=== PATIENT | female | born 1995 | race Two or more races ===

== ENCOUNTER 2017-06-11 07:06 | Outpatient (CLI) | payer OTHER | END 2017-06-11 07:09 | disposition home or self-care (01) | LOC: SONOGRAMA 07:06 | DX: E04.1 Nontoxic single thyroid nodule (principal) ==

== ENCOUNTER 2019-04-18 05:47 | Inpatient (IN) | payer OTHER ==
[~2019-04-18] VITALS: Ht 121.9 cm; Wt 5.0 kg
[2019-04-18] MEDS ORDERED: ANTICONCEPTIVAS (06:07)
[2019-04-21] MEDS ORDERED: NORGESTIMATE-E1 EAC1 PO (08:56)
[2019-05-02] MEDS ORDERED: INTESTINEX680 M1 PO (14:29)
[2019-05-02] MEDS ORDERED: CIPRO500 MG PO (14:29)
[2019-05-02] MEDS ORDERED: FLAGYL500MG PO (14:29)
[2019-05-02] MEDS ORDERED: PANTOPRAZOLE SO40 MG PO (14:29)
== END 2019-05-02 16:13 | disposition home or self-care (01) | DRG 392 ==
LOC: ER 05:47 → MEDJ 17:33 → SEC-K 17:33 → MEDJ 18:23
PROVIDERS: ADMIT Internal Medicine
PROC: BW21ZZZ Computerized Tomography (CT Scan) of Abdomen and Pelvis (ICD-10-PCS; 2019-04-18)
PROC: 06HY33Z Insertion of Infusion Device into Lower Vein, Percutaneous Approach (ICD-10-PCS; principal; 2019-04-22)
PROC: BF37ZZZ Magnetic Resonance Imaging (MRI) of Pancreas (ICD-10-PCS; 2019-04-30)
DX: K57.20 Diverticulitis of large intestine with perforation and abscess without bleeding (principal); E86.0 Dehydration; I87.2 Venous insufficiency (chronic) (peripheral); R74.8 Abnormal levels of other serum enzymes

== ENCOUNTER 2019-05-05 22:02 | Inpatient (IN) | payer OTHER ==
[~2019-05-05] VITALS: Ht 167.6 cm; Wt 75.3 kg
[~2019-05-05 22:02] MED LIST: ANTICONCEPTIVAS; CIPRO500 MG PO; FLAGYL500MG PO; INTESTINEX680 M1 PO; NORGESTIMATE-E1 EAC1 PO; PANTOPRAZOLE SO40 MG PO
--- NOTE | 2019-05-05 22:15 | NUR ---
PACIENTE ALERTA Y ORIENTADA EN LAS CASSIDY ESFERAS, LA MISMA INDICA ESTUVO HOSPITALIZADA LA SEMANA PASADA POR COLITIS INDICA HOY COMENZO [place] CON DOLOR ABDOMINAL OZZY. SE COLOCA PACIENTE EN AREA DE OBSERVACION PARA EVALUACION MEDICA.
--- NOTE | 2019-05-06 01:45 | NUR ---
SE ORIENTA PTE SOBRE EL TRATAMIENTO ORDENADO POR LA DRA VINCENT PTE ALERTA Y CONCIENTE POR 3 SE REALIZAN MUESTRAS DE LABORATORIO Y SE ADMINISTRAN MEDICAMETNO DESI ORDNEADO SE NOTIFCA ESTUDIO PENDIENTE.
--- NOTE | 2019-05-06 08:22 | NUR ---
SE RECIBE PTE FEMENINA DE 23 YRS ALERTA CONCIENTE Y TRANQUILA EN COPANIA DE FAMILIAR. PTE EN ESPERA DE MEDICO CONSULTOR LA CUAL SE MANTIENE NOTIFICADO. SE MANTIENE CON IVF PANTENTE Y PRITI DE EDEMA. SE MANTIENE NADA POR BOCA Y SE MANTIENE LA PTE NOTIFICADO. SE OBSERVAPOR CAMBIOS
[2019-05-23] MEDS ORDERED: FLUCONAZOLE100 MG PO (13:39)
[2019-05-23] MEDS ORDERED: INTESTINEX680 M1 PO (13:39)
== END 2019-05-23 16:36 | disposition home health service (06) | DRG 391 ==
LOC: ER 22:02 → SEC-K 05-06 11:39 → MEDI 05-06 11:39 → MEDJ 05-22 19:39 → MEDI 05-22 20:34
PROVIDERS: ADMIT Internal Medicine
PROC: 02HV33Z Insertion of Infusion Device into Superior Vena Cava, Percutaneous Approach (ICD-10-PCS; principal; 2019-05-06)
PROC: 3E0436Z Introduction of Nutritional Substance into Central Vein, Percutaneous Approach (ICD-10-PCS; 2019-05-06)
PROC: BW21ZZZ Computerized Tomography (CT Scan) of Abdomen and Pelvis (ICD-10-PCS; 2019-05-13)
DX: K57.20 Diverticulitis of large intestine with perforation and abscess without bleeding (principal); K65.1 Peritoneal abscess; N39.0 Urinary tract infection, site not specified; R10.32 Left lower quadrant pain; E04.2 Nontoxic multinodular goiter

== ENCOUNTER 2019-06-13 15:16 | Inpatient (IN) | payer OTHER ==
[~2019-06-13] VITALS: Ht 167.6 cm; Wt 73.5 kg
[~2019-06-13 15:16] MED LIST changes: +FLUCONAZOLE100 MG PO
[2019-06-26] MEDS ORDERED: OXYC1TAB9 PO (11:12)
[2019-06-26] MEDS ORDERED: INTESTINEX680 M1 PO (11:13)
[2019-06-26] MEDS ORDERED: PANTOPRAZOLE SO40 MG PO (11:13)
[2019-06-26] MEDS ORDERED: DICLOFENAC SODI75 MG PO (11:14)
[2019-06-26] MEDS ORDERED: POLY119PG PO (11:14)
== END 2019-06-26 14:28 | disposition home or self-care (01) | DRG 329 ==
LOC: ER 15:16 → MEDJ 18:39 → SURH 06-23 10:36
PROVIDERS: Surgery; ADMIT Internal Medicine
PROC: BW21YZZ Computerized Tomography (CT Scan) of Abdomen and Pelvis using Other Contrast (ICD-10-PCS; 2019-06-13)
PROC: 02HV33Z Insertion of Infusion Device into Superior Vena Cava, Percutaneous Approach (ICD-10-PCS; 2019-06-14)
PROC: 3E0436Z Introduction of Nutritional Substance into Central Vein, Percutaneous Approach (ICD-10-PCS; 2019-06-14)
PROC: 0DJD8ZZ Inspection of Lower Intestinal Tract, Via Natural or Artificial Opening Endoscopic (ICD-10-PCS; 2019-06-23)
PROC: 0DTN4ZZ Resection of Sigmoid Colon, Percutaneous Endoscopic Approach (ICD-10-PCS; principal; 2019-06-23 09:00)
DX: K57.32 Diverticulitis of large intestine without perforation or abscess without bleeding (principal); K65.1 Peritoneal abscess; B37.41 Candidal cystitis and urethritis; E16.1 Other hypoglycemia; E04.2 Nontoxic multinodular goiter

== ENCOUNTER 2020-03-09 01:50 | Inpatient (IN) | payer OTHER ==
[~2020-03-09] VITALS: Ht 182.9 cm; Wt 5.0 kg
[~2020-03-09 01:50] MED LIST changes: +DICLOFENAC SODI75 MG PO; +OXYC1TAB9 PO; +POLY119PG PO
[2020-03-12] MEDS ORDERED: PEPCID AC20 MG PO (08:40)
[2020-03-12] MEDS ORDERED: PERCOCET 5-3251 EACH PO (08:40)
[2020-03-13] MEDS ORDERED: PEPCID AC20 MG PO (11:55)
[2020-03-13] MEDS ORDERED: CIPRO500 MG PO (11:55)
[2020-03-13] MEDS ORDERED: INTESTINEX680 M1 PO (11:55)
== END 2020-03-13 14:33 | disposition home or self-care (01) | DRG 418 ==
LOC: ER 01:50 → MEDI 14:19 → SEC-K 14:19 → MEDI 17:48 → SURH 03-11 19:13
PROVIDERS: Surgery; ADMIT Internal Medicine; ATTEND Internal Medicine
PROC: BW40ZZZ Ultrasonography of Abdomen (ICD-10-PCS; 2020-03-09)
PROC: BF37ZZZ Magnetic Resonance Imaging (MRI) of Pancreas (ICD-10-PCS; 2020-03-09)
PROC: 02H633Z Insertion of Infusion Device into Right Atrium, Percutaneous Approach (ICD-10-PCS; 2020-03-11)
PROC: BF13YZZ Fluoroscopy of Gallbladder and Bile Ducts using Other Contrast (ICD-10-PCS; 2020-03-11)
PROC: 0FT44ZZ Resection of Gallbladder, Percutaneous Endoscopic Approach (ICD-10-PCS; principal; 2020-03-11 18:30)
DX: K85.10 Biliary acute pancreatitis without necrosis or infection (principal); K80.10 Calculus of gallbladder with chronic cholecystitis without obstruction; Z20.828 Contact with and (suspected) exposure to other viral communicable diseases

== ENCOUNTER 2021-08-23 05:54 | Emergency (ER) | payer OTHER ==
[~2021-08-23] VITALS: Ht 167.6 cm; Wt 84.4 kg
[~2021-08-23 05:54] MED LIST changes: +PEPCID AC20 MG PO; +PERCOCET 5-3251 EACH PO
[2021-08-23] MEDS ORDERED: TRI-LO-SPRINTE1 EACH (06:02)
[2021-08-23] MEDS ORDERED: PYRIDIUM100 MG PO (10:28)
[2021-08-23] MEDS ORDERED: CITRATE OF MAG296 ML PO (10:28)
== END 2021-08-23 10:46 | disposition home or self-care (01) ==
LOC: ER 05:54
DX: R10.2 Pelvic and perineal pain (principal); N83.202 Unspecified ovarian cyst, left side

== ENCOUNTER 2022-07-19 11:13 | Outpatient (CLI) | payer OTHER ==
[~2022-07-19 11:13] MED LIST changes: +CITRATE OF MAG296 ML PO; +PYRIDIUM100 MG PO; +TRI-LO-SPRINTE1 EACH
== END 2022-07-19 11:21 | disposition home or self-care (01) ==
LOC: RAD 11:13
PROVIDERS: ATTEND Physical Medicine & Rehabilitation
DX: M25.561 Pain in right knee (principal); M25.562 Pain in left knee

== ENCOUNTER 2022-10-10 15:34 | Emergency (ER) | payer OTHER ==
[~2022-10-10] VITALS: Ht 167.6 cm; Wt 80.7 kg
[2022-10-10] MEDS ORDERED: INTESTINEX680 M1 PO (18:38)
== END 2022-10-10 19:19 | disposition home or self-care (01) ==
LOC: ER 15:34
DX: K52.89 Other specified noninfective gastroenteritis and colitis (principal)

== ENCOUNTER 2023-05-09 06:36 | Emergency (ER) | payer OTHER ==
[~2023-05-09] VITALS: Ht 167.6 cm; Wt 83.9 kg
[2023-05-09] MEDS ORDERED: METHYLPREDNISOLONE SOD SUCC 125 MG VIAL IV STA (07:43)
[2023-05-09] MEDS ORDERED: HYDROCODONE/CHLORPHEN P-STIREX 5 ML ML PO STA (07:43)
[2023-05-09] MEDS ORDERED: LEVALBUTEROL HCL 0.63 MG/3 ML SOLUTION IH SCH (07:45)
[2023-05-09 08:24] LABS: HEMATOCRIT 41.2 % (36.0-45.00); MEAN CELL VOLUME 93.7 fL (80.00-100.00); MEAN CORPUSCULAR HEMOGLOBIN 31.8 pg (27.00-32.0); PLATELET COUNT 371 K/uL (150-450); RED CELL DISTRIBUTION WIDTH 14.5 % (11.5-14.5)
[2023-05-09 10:51] LABS: ABG PH 7.416 (7.35-7.45); ABG PO2 85.7 mmHg (80-100); ABG pCO2 39.7 mmHg (35-45); BASE EXCESS 0.4 mmol/l; BICARBONATE 24.9 mmol/l (23-25); SaO2 96.6 %
[2023-05-09 10:52] LABS: Tco2 26.1 mmol/l; allen test SATISFACTORY; o2 21 %; puncture site RADIAL RIGHT
== END 2023-05-09 09:25 | disposition home or self-care (01) ==
LOC: ER 06:36
PROVIDERS: General Practice
DX: J06.9 Acute upper respiratory infection, unspecified (principal); R06.02 Shortness of breath; Z20.822 Contact with and (suspected) exposure to COVID-19

== ENCOUNTER 2023-05-14 06:36 | Emergency (ER) | payer OTHER ==
[~2023-05-14] VITALS: Ht 167.6 cm; Wt 83.9 kg
[2023-05-14] MEDS ORDERED: BUDESONIDE 0.5 MG/2 ML AMPUL.NEB IH STA (08:35)
[2023-05-14] MEDS ORDERED: METHYLPREDNISOLONE SOD SUCC 125 MG VIAL IV STA (08:36)
[2023-05-14] MEDS ORDERED: IPRATROPIUM BROMIDE 0.5 MG/2.5 ML AMPUL.NEB IH STA (08:36)
== END 2023-05-14 10:18 | disposition home or self-care (01) ==
LOC: ER 06:36
DX: R05.8 Other specified cough (principal)

== ENCOUNTER 2024-09-21 20:33 | Emergency (ER) | payer OTHER ==
[~2024-09-21] VITALS: Ht 167.6 cm; Wt 94.3 kg
[~2024-09-21 20:33] MED LIST changes: +KETO10TA2 PO
[2024-09-21] MEDS ORDERED: KETOROLAC TROMETHAMINE 60 MG VIAL IM STA (22:35)
[2024-09-21 23:38] LABS: BASO % 0.4 % (0.1-1.2); EOS # 0.64 (0.04-0.54); EOS % 4.5 % (0.7-7.0); HEMATOCRIT 39.7 % (34.1-44.9); HEMOGLOBIN 13.4 g/dL (11.2-15.7); LYMPH % 22.7 % (19.3-53.1); MEAN CORPUSCULAR HEMOGLOBIN 31.2 pg (25.6-32.2); MONO % 8.5 % (4.7-12.5); NEUT # 8.94 (1.56-6.13); NEUT % 63.5 % (34.0-71.1); PLATELET COUNT 350 K/uL (163-369); RED CELL DISTRIBUTION WIDTH 13.5 % (11.6-14.4)
== END 2024-09-22 00:07 | disposition home or self-care (01) ==
LOC: ER 20:47
DX: N94.0 Mittelschmerz (principal); R10.2 Pelvic and perineal pain; Z98.0 Intestinal bypass and anastomosis status; K57.30 Diverticulosis of large intestine without perforation or abscess without bleeding